=== PATIENT | female | born 1970 | race Caucasian/White ===

== ENCOUNTER 2021-04-25 09:22 | Day surgery (SDC) | payer BC, OTHER ==
[~2021-04-25] VITALS: Ht 165.1 cm; Wt 95.3 kg
[~2021-04-25 09:22] MED LIST: PRILOSEC OTC20 MG PO; TUMS X-STR300 MG PO
[2021-04-25 11:17] VITALS: BP 138/85
[2021-04-25 15:16] VITALS: BP 138/85
--- NOTE | 2021-04-26 09:46 | O ---
[facility] [address] [place] [address] OPERATIVE REPORT Name: POLLY MEI Room #: DEP [facility].#: [id number] Admission: 04/25/21 Attend Phys: Georges Canales MD Discharge: 04/25/21 Date of : 72 Report #: [id number] THIS REPORT FOR: cc: Oziel Bowling,Oziel Choi,Georges Faye MD ~ DATE OF SERVICE: 04/25/2021 SERVICE: Orthopedics. FACILITY: [facility]. SURGEON: Georges Canales MD DRIVER MATERIAL HANDLER: Magaly Dacosta. PREOPERATIVE DIAGNOSES: 1. Left hip pain. 2. Left hip femoral acetabular impingement. 3. Left hip labral tear. POSTOPERATIVE DIAGNOSES: 1. Left hip pain. 2. Left hip femoral acetabular impingement. 3. Left hip labral tear. PROCEDURES: 1. Left hip arthroscopic labral repair. 2. Left hip arthroscopic Cam osteochondroplasty. 3. Left hip arthroscopic subspine decompression. COMPLICATIONS: None. DRAINS: None. SPECIMENS: None. ANESTHESIA: General with regional. FINDINGS: 1. Alisson CinchLock suture anchor x2 for labral repair. 2. Small focal subspine impingement lesion treated with subspine decompression. 3. Medium-sized Cam deformity, treated with Cam osteoplasty. 4. Capsulotomy repaired with 2-0 Vicryl x 6. HISTORY: The patient is a 51-year-old female with acute onset of left hip pain [facility] [place] [address] OPERATIVE REPORT Name: POLLY MEI Room #: DEP [facility] M.R.#: [id number] Admission: 04/25/21 Attend Phys: Georges Canales MD Discharge: 04/25/21 Date of : 72 Report #: [id number] that we treated conservatively for some time including rest, activity modifications, physical therapy, oral medicines, intraarticular injection. She had partial improvement with intraarticular injection, but continued to have pain that was affecting activities of daily living. She had findings consistent with impingement on physical exam with a positive impingement sign. Decreased internal rotation. She had give way symptoms and had imaging consistent with femoral acetabular impingement as well. The x-rays showed an alpha angle approximately 56 degrees. She had a Tonnis grade of 0 with a small crossover sign secondary to a prominent anterior inferior iliac spine and a full-thickness labral tear noted on the MRI arthrogram. Risks, benefits, alternatives and indications for surgery discussed with her in detail. She had failed conservative measures. Risks include but not limited to pain, bleeding, infection, injuring nerves or blood vessels, persistent pain despite surgical intervention, failure of any repairs, progression of preexisting chondral injury, stiffness, need for further surgery as well as complications related to anesthesia. Despite the risks, she wished to proceed. DESCRIPTION OF PROCEDURE: After left lower extremity was correctly identified in the preoperative holding area as the operative extremity, the patient underwent regional nerve block. She was then taken to the operating room where general anesthesia induced without complications. She was padded appropriately. Prophylactic antibiotics were administered at appropriate time. The left hip femoral head and neck junction was mapped out under fluoroscopy to identify the extent of the Cam deformity and then the left hip was prepped and draped in standard sterile fashion. Timeout procedure performed. Traction was applied. Standard anterolateral viewing portal was established followed by anteromedial working portal. Diagnostic arthroscopy revealed the above findings. There was some synovitis present, which will be the indication for continuous passive motion machine usage postoperatively in order to reduce the risk of scarring and adhesions that these can be reasons for reoperation in this patient population. Transverse capsulotomy was performed. Shaver was used to perform a limited synovectomy and then the labrum was evaluated. She had a full thickness anterior labral tear and then as it coursed laterally, it transitioned into a chondral wave sign with an unstable chondral labral junction. On probing, the capsule was reflected off the dorsal side of the labrum, allowing access to the subspine region, which was dissected out with the cautery and the shaver isolating the base of the anterior inferior iliac spine. The bur was then used to perform a subspine decompression in standard fashion, recessing the distal portion of the anterior inferior iliac spine. The bur was used to abrade the acetabular rim to create a fresh bleeding surface for labral repair and then we proceeded with labral refixation. First anchor was placed anteriorly at the location of the full-thickness tear. Good compression of the labrum was achieved. Second anchor was placed more laterally. The labrum and the cartilage were then palpated with the probe and found to be stable. The [address] [address] OPERATIVE REPORT Name: POLLY MEI Room #: DEP [facility] Hank#: [id number] Admission: 04/25/21 Attend Phys: Georges Canales MD Discharge: 04/25/21 Date of : 72 Report #: [id number] scope was placed anteriorly. Working portal was made laterally and then the traction was let down. Hip was flexed up. Attention was turned towards the peripheral compartment. A transverse capsulotomy was extended down the neck in a T fashion allowing access to the Cam deformity and then the Cam osteoplasty was performed in standard fashion. The instruments were removed. C-arm was brought in to assess the resection and identified some additional bone that needed to be resected, placed the instruments back in the hip and then proceeded with the Cam osteoplasty addressing this area of bone. This procedure was repeated once more and after adequate Cam resection had been completed, final x-rays were taken. Instruments were placed back into the hip. The bony debris was lavaged out of the hip and then, a T-shaped capsulotomy was closed with total of six #2 Vicryl sutures. Instruments were removed. Portal sites were closed. Sterile dressing was applied. The patient was awakened from anesthesia and taken to recovery room in stable condition and no complications. All counts were recorded as correct. <ELECTRONICALLY SIGNED> By: Georges Canales MD 04/26/21 [id number] [id number] Georges Canales MD /nt
== END 2021-04-25 16:50 | disposition home or self-care (01) ==
LOC: OR 09:22 → TBA 09:29 → OR 09:47 → TBA 16:50 → OR 22:15
PROVIDERS: ATTEND Orthopaedic Surgery Sports Medicine
DX: M25.552 Pain in left hip (principal); M25.852 Other specified joint disorders, left hip; S73.102A Unspecified sprain of left hip, initial encounter; K21.9 Gastro-esophageal reflux disease without esophagitis; Z98.890 Other specified postprocedural states; Z79.899 Other long term (current) drug therapy; Z20.822 Contact with and (suspected) exposure to COVID-19; Z98.51 Tubal ligation status; Z90.710 Acquired absence of both cervix and uterus; Z88.8 Allergy status to other drugs, medicaments and biological substances; X58.XXXA Exposure to other specified factors, initial encounter; Y93.89 Activity, other specified; Y92.89 Other specified places as the place of occurrence of the external cause; Y99.8 Other external cause status
CPT/HCPCS: 50010; 50101; 50386; 51320; 51538; 52001; 52282; 52304; 52313; 56524; 56527; 57092; 57103; 58273; 58274; 58557; 58558; 58559; 58561; 58562; 58563; 58564; 58608; 58638; 62110; 62900; 64039; 70005